=== PATIENT | male | born 1995 | race American Indian/Alaskan Native ===

== ENCOUNTER 2019-04-22 09:15 | Emergency (ER) | payer SELFPAY ==
[2019-04-22 09:26] VITALS: BP 115/80
--- NOTE | 2019-04-22 09:54 | Emergency Department Report ---
ED General Adult HPI - General Chief complaint: Extremity Injury, Upper Stated complaint: INJURED FINGER Time Seen by Provider: 04/22/19 09:38 Source: patient Mode of arrival: Ambulatory Limitations: No Limitations - History of Present Illness Initial comments: Patient is 24 years old male with no significant past medical history. Patient presented to the ER complaining of left middle finger injury that happened 2 weeks ago. Patient stated that he went to [facility] and had an x- ray and was told that there is nothing broken and he was given clindamycin for possible cellulitis. Patient is also complaining of swelling to the right cheek area just under the right eye. Patient denied any fever or chills. No nausea or vomiting. - Related Data Allergies Allergy/AdvReac Type Severity Reaction Status Date / Time No Known Allergies Allergy Verified 04/22/19 09:26 ED Review of Systems ROS: Stated complaint: INJURED FINGER Other details as noted in HPI Comment: All other systems reviewed and negative Constitutional: denies: chills, fever ED Past Medical Hx - Social History Smoking Status: Never Smoker Substance Use Type: None ED Physical Exam - General Limitations: No Limitations General appearance: alert, in no apparent distress - Head Head exam: Present: atraumatic, normocephalic - ENT ENT exam: Present: normal exam, normal orophraynx, mucous membranes moist - Neck Neck exam: Present: normal inspection, full ROM. Absent: tenderness, meningismus - Respiratory Respiratory exam: Present: normal lung sounds bilaterally - Cardiovascular Cardiovascular Exam: Present: regular rate, normal heart sounds - Extremities Exam Extremities exam: Present: other (left middle finger with mild tenderness but no evidence of cellulitis.) - Back Exam Back exam: Present: normal inspection - Skin Skin exam: Present: warm, intact, other (0.5 cm time 0.5 cm, swelling under the right eye with tenderness and erythema.) ED Course Vital Signs 04/22/19 09:25 Temperature 98.1 F Pulse Rate 75 Respiratory 16 Rate Blood Pressure 115/80 O2 Sat by Pulse 98 Oximetry Critical care attestation.: If time is entered above; I have spent that time in minutes in the direct care of this critically ill patient, excluding procedure time. ED Disposition Clinical Impression: Cellulitis Disposition: DC-01 TO HOME OR SELFCARE Is pt being admited?: No Condition: Stable Instructions: Cellulitis (ED), Finger Sprain (ED) Referrals: [facility] [Provider Group] - 3-5 Days
== END 2019-04-22 10:13 | disposition home or self-care (01) ==
LOC: ED 09:15
DX: S69.92XA Unspecified injury of left wrist, hand and finger(s), initial encounter (principal); L03.211 Cellulitis of face; X58.XXXA Exposure to other specified factors, initial encounter; Y93.89 Activity, other specified; Y92.89 Other specified places as the place of occurrence of the external cause; Y99.8 Other external cause status